=== PATIENT | female | born 1940 | race Hispanic/Latino ===

== ENCOUNTER → 2018-02-23 | Outpatient (CLI) | payer MEDICARE ==
--- NOTE | 2018-02-23 11:12 | Diagnostic Imaging Report ---
EXAM: XR CHEST 2 VIEWS DATE: 02/23/2018 10:35 AM INDICATION: Pain COMPARISON: None FINDINGS: Lines and Tubes: None Heart and Mediastinum: No acute cardiomediastinal findings. Mild aortic vascular calcifications and tortuosity. Lungs and Pleura: No significant pleural effusion, pneumothorax, or focal consolidation. Bones and Soft Tissues: Degenerative changes spine with exaggerated kyphosis. IMPRESSION: 1. No acute cardiopulmonary findings. Signed by: Dr. Donte Bucio MD on 02/23/2018 11:09 AM
== END ==
LOC: RAD 10:19
PROVIDERS: ATTEND Family Medicine
DX: R07.9 Chest pain, unspecified (principal)
CPT/HCPCS: 71046

== ENCOUNTER → 2018-03-09 | Outpatient (CLI) | payer MEDICARE ==
[~2018-03-09] MED LIST: REGADENOSON 0.4 MG/5 ML SYR IV ONE
== END ==
LOC: NM 07:33
DX: R07.2 Precordial pain (principal)
CPT/HCPCS: 78452; 93005; A9502; J2785

== ENCOUNTER → 2020-01-14 | Outpatient (CLI) | payer MEDICARE ==
--- NOTE | 2020-01-14 14:14 | Diagnostic Imaging Report ---
MRI of the right shoulder without contrast. History: Shoulder pain. Adhesive capsulitis. Decreased range of motion. Arthritis. Comparison: None Technique: Coronal PD FS, sagital PD FS, and axial PD and PD FS. Findings: Rotator cuff: Rotator cuff tendinosis with full-thickness tear involving the supraspinatus and anterior fibers of the infraspinatus tendons at the humeral insertion site. This is best seen on coronal image 11 through 13. Retraction of the torn fibers to the level of the glenoid and moderate supraspinatus and infraspinatus muscle atrophy. Additionally, there is subscapularis tendinosis. The teres minor tendon is intact. Osseous acromion complex: Type II acromion with mild lateral. Moderate degenerative arthrosis at the acromioclavicular joint with undersurface spurring and narrowing of the supraspinatus tendon outlet. Mild subacromial/subdeltoid bursitis. Glenohumeral joint: Degeneration and fraying of the labrum. The articular cartilage surfaces are slightly thin. Small effusion and mild synovitis in the rotator interval and subcoracoid space. The capsular structures are otherwise intact. Biceps tendon: Intra-articular biceps tendinosis with fraying of the biceps anchor. Other findings: Negative for muscle denervation or osseous fracture. Impression: Rotator cuff tendinosis with full-thickness tear involving the supraspinatus and anterior fibers of the infraspinatus tendons at the humeral insertion site. Intra-articular biceps tendinosis with fraying of the biceps anchor. Moderate degenerative arthrosis at the acromioclavicular joint with undersurface spurring and narrowing of the supraspinatus tendon outlet. Mild subacromial/subdeltoid bursitis. Signed by: Dr. Tesfaye Schuster M.D. on 01/14/2020 2:11 PM
== END ==
LOC: MRI 12:54
PROVIDERS: ATTEND Specialist
DX: M75.01 Adhesive capsulitis of right shoulder (principal)